=== PATIENT | female | born 1955 | race Caucasian/White ===

== ENCOUNTER 2017-02-06 20:00 | Emergency (ER) | payer BC, OTHER ==
--- NOTE | 2017-02-06 20:04 | PDOC ---
History of Present Illness - General History Source: Patient Exam Limitations: No Limitations - History of Present Illness Initial Comments: 02/06/17 20:19 The patient is a 61 year old female, with a significant past medical history of asthma, Parkinsons disease, who presents to the emergency department with right thumb pain. She notes just prior to ER arrival, 1 hour ago, hearing a snap from her right thumb followed by an acute sudden onset of right thumb pain while buckling her seatbelt. She reports since the incident having shooting pain down her hand from her thumb into her wrist. She also notes having pain with any motion of her right thumb. She notes recently her thumb has been weak having difficulty grasping and lifting everyday objects. She denies recent fevers, chills, headache or dizziness. She denies recent nausea, vomit, diarrhea or constipation. She denies recent dysuria, frequency, urgency or hematuria. She denies recent chest pain or shortness of breath. Patient taken opana for her pain and Nonsteroidal anti inflammatorys as needed for acute pain Allergies: NKA Past surgical history: Spinal and lumbar surgeries Social history: Former smoker (10 years ago). Denies EtOH use and recreational drug use. Primary Care Physician: 02/06/17 20:26 <Benton Hawk - Last Filed: 02/06/17 20:29> <Diandra Weiss - Last Filed: 02/07/17 02:44> - General Chief Complaint: Pain, Acute Stated Complaint: RIGHT THUMB PAIN Time Seen by Provider: 02/06/17 20:03 Past History <Benton Hawk - Last Filed: 02/06/17 20:29> <Diandra Weiss - Last Filed: 02/07/17 02:44> - Past Medical History Allergies/Adverse Reactions: Allergies Allergy/AdvReac Type Severity Reaction Status Date / Time No Known Allergies Allergy Verified 02/06/17 20:01 Home Medications: Ambulatory Orders Bupropion HCl [Bupropion Xl] 150 mg PO BID 02/06/17 Carbidopa/Levodopa [Sinemet 10-100 mg Tablet] 0 each PO QID 02/06/17 Entacapone 250 mg PO QID 02/06/17 Oxymorphone HCl [Opana] 20 mg PO BID 02/06/17 Trazodone HCl 0 mg PO HS 02/06/17 Review of Systems - Review of Systems All Other Systems: Reviewed and Negative <Benton Hawk - Last Filed: 02/06/17 20:29> *Physical Exam - Physical Exam Comments: 02/06/17 20:23 GENERAL: The patient is awake, alert, and fully oriented, in no acute distress. EXTREMITIES: RUE: Moderate tenderness base of the right thumb extending into the interdigital space between thumb and index finger. Pain reproduced with extension and flexion of index finger and thumb. No deformity,edema, or ecchymosis present. Excellent capillary refill with warm and dry fingers. Radial pulse is brisk at the wrist. NEUROLOGICAL: Cranial nerves II through XII grossly intact. Normal speech, normal gait. PSYCH: Normal mood, normal affect. SKIN: Warm, Dry, normal turgor, no rashes or lesions noted. <Benton Hawk - Last Filed: 02/06/17 20:29> Progress Note - Progress Note Progress Note: Documentation has been prepared under my direction and personally reviewed by me in its entirety. I attest that this documented accurately reflects all work, treatment, procedures and medical decision making performed by me. <Diandra Weiss - Last Filed: 02/07/17 02:44> Medical Decision Making - Medical Decision Making As noted above, this 61-year-old woman presents with acute right hand pain: Pain in the area of the base of her right thumb extending into the interspace between the thumb and index finger. This began suddenly when she reached down to fasten her seatbelt as she was driving just prior to presentation. Patient felt of "pop" then pain. No history of acute trauma. Patient has chronic weakness/numbness of the right upper extremity secondary to cervical radiculopathy. She was asked to see a hand surgeon by her neurosurgeon but she has not yet pursued this. Exam as noted above. Right hand x-ray reveals no evidence of acute fracture or dislocation Clinical presentation most consistent with right hand soft tissue injury: Sprain /strain. Darron wrap applied to the hand. Patient requested that her thumb be flexed as Darron wrap applied since this was the most comfortable position for her. Patient was also given a sling to be used during the day to keep that hand at heart level or above. Patient should also ice the area for the next 48 hours Patient generally uses nonsteroidal anti-inflammatory medications for breakthrough pain (on Opana twice a day for her chronic back pain) Patient had been given a hand surgeon referral (in [place]) by her neurosurgeon. She will also be given Dr. Gregg's referral information (he is ammonia still operator for hand surgery this week) <Diandra Weiss - Last Filed: 02/07/17 02:44> *DC/Admit/Observation/Transfer - Attestations Scribe Attestion: 02/06/17 20:05 Documentation prepared by Benton Hawk, acting as medical equipment technician for Diandra Weiss MD. <Benton Hawk - Last Filed: 02/06/17 20:29> <Diandra Weiss - Last Filed: 02/07/17 02:44> Diagnosis at time of Disposition: Hand sprain Qualifiers: Encounter type: initial encounter Laterality: right Qualified Code(s): S63.91XA - Sprain of unspecified part of right wrist and hand, initial encounter - Discharge Dispostion Disposition: HOME Condition at time of disposition: Stable - Referrals Referrals: Trinity Ngo [Primary Care Provider] - Christoph Gregg MD [Staff Physician] - Call tomorrow - Patient Instructions Printed Discharge Instructions: DI for Hand Pain Additional Instructions: Ice/elevation right hand as much as possible over the next 2 days Darron wrap during day/remove at night Naproxen (Aleve) as needed for pain; take with food Follow-up with hand surgeon within the next 2-3 days ( or other as recommended by your neurosurgeon) Return to ER if you have worsening of pain - Post Discharge Activity
[2017-02-06 21:01] VITALS: BP 127/90; PULSE 73; TEMP 98.2; BMI 18.6
== END 2017-02-06 20:56 | disposition home or self-care (01) ==
LOC: FER 20:00
DX: S63.91XA Sprain of unspecified part of right wrist and hand, initial encounter (principal); X58.XXXA Exposure to other specified factors, initial encounter; Y93.89 Activity, other specified; Y92.9 Unspecified place or not applicable; J45.909 Unspecified asthma, uncomplicated; G20 Parkinson's disease
CPT/HCPCS: 73130-TC-RT; 99282-25